=== PATIENT | male | born 1990 | race Caucasian/White ===

== ENCOUNTER 2019-01-19 01:48 | Emergency (ER) | payer MEDICAID, OTHER ==
[~2019-01-19] VITALS: Ht 175.3 cm; Wt 81.9 kg
--- NOTE | 2019-01-19 01:59 | NUR ---
PT TO ROOM. DR. VICKERS IN TO EVALUATE PT.
[2019-01-19 02:06] VITALS: BP 126/67
--- NOTE | 2019-01-19 02:12 | NUR ---
PT CONNECTED TO MONITORING. VSS. PT C/O RIGHT EAR PAIN LAST X3 DAYS WITH INCREASED PAIN THIS EVENING. PT TOOK MOTRIN AT HOME FOR PAIN WITH NO RELEIF. PT REPORTS NO RECENT ILLNESS OR ALLERGIES. PT DENIES ANY TRAUMA. ALL SAFETY MEASURES IN PLACE, CALL LIGHT WITHIN REACH.
[2019-01-19] MEDS ORDERED: ACETAMINOPHEN 500 MG TABLET ONE (02:18)
[2019-01-19] MEDS ORDERED: CLINDAMYCIN 300 MG CAPSULE ONE (02:18)
[2019-01-19] MEDS ORDERED: CLINDAMYCIN 300 MG CAPSULE PO ONE (02:30)
[2019-01-19] MEDS ORDERED: ACETAMINOPHEN 500 MG TABLET PO ONE (02:30)
[2019-01-19] MEDS ORDERED: NEO/POLY/HC EAR SUSP 10ML RIGHT EAR SCH (02:30)
== END 2019-01-19 02:49 | disposition home or self-care (01) ==
LOC: ED 02:43
DX: H60.11 Cellulitis of right external ear (principal); H92.01 Otalgia, right ear; F17.200 Nicotine dependence, unspecified, uncomplicated
CPT/HCPCS: 99284